=== PATIENT | female | born 1950 ===

== ENCOUNTER 2018-07-22 22:40 | Emergency (ER) | payer MEDICAID ==
[2018-07-22 23:36] VITALS: O2SAT 99
--- NOTE | 2018-07-23 00:44 | ED PDOC ---
Lower Extremity Pain/Injury Time Seen by Provider: 07/22/18 23:41 Chief Complaint (Nursing): Abnormal Skin Integrity Chief Complaint (Provider): Abnormal Skin Integrity History Per: Patient History/Exam Limitations: no limitations Onset/Duration Of Symptoms: Other (x6 weeks) Additional Complaint(s): 68 y/o female with history of diabetes and hypertension presents to ER for evaluation of non healing ulcer to the surface of left tackles heel onset 6 weeks. Patient reports she was seen at [facility] and admitted for 5 days. She states on discharge, she was instructed to follow up with special education tutor and given saline. Patient reports she saw special education tutor today who referred her to ER for further evaluation. Daughter reports the ulcer has been increasing in size. Patient denies vomiting, chills, obvious drainage of ulcer, trauma or injury to area. PMD: non provided Past Medical History Reviewed: Historical Data, Nursing Documentation, Vital Signs Vital Signs: Last Vital Signs Temp 98.1 F 07/22/18 23:32 Pulse 127 H 07/22/18 23:32 Resp 20 07/22/18 23:32 BP 165/90 H 07/22/18 23:32 Pulse Ox 99 07/22/18 23:32 - Medical History PMH: Diabetes, HTN - Surgical History Other surgeries: Right lower extremity surgery for traumatic injury - Family History Family History: States: Unknown Family Hx - Social History Current smoker - smoking cessation education provided: No Alcohol: None Drugs: Denies - Allergies Allergies/Adverse Reactions: Allergies Allergy/AdvReac Type Severity Reaction Status Date / Time No Known Allergies Allergy Verified 07/23/18 00:07 Review of Systems ROS Statement: Except As Marked, All Systems Reviewed And Found Negative Constitutional: Negative for: Chills Gastrointestinal: Negative for: Vomiting Skin: Positive for: Other (non healing ulcer to left tackles heel) Physical Exam - Reviewed Nursing Documentation Reviewed: Yes Vital Signs Reviewed: Yes - Physical Exam Appears: Positive for: Non-toxic, No Acute Distress Head Exam: Positive for: ATRAUMATIC, NORMOCEPHALIC Skin: Positive for: Normal Color, Warm, Dry Neck: Positive for: Normal, Painless ROM, Supple Cardiovascular/Chest: Positive for: Regular Rate, Rhythm, Murmur (3/6 systolic murmur) Extremity: Positive for: Normal ROM (upper and lower), Other (3 cm ulcer to surface of left tackles heel. Mild redness. No warmth, fluctuance or drainage of ulcer.) Neurologic/Psych: Positive for: Alert, Oriented (x3) - Laboratory Results Result Diagrams: 07/23/18 00:55 07/23/18 00:55 - ECG O2 Sat by Pulse Oximetry: 99 (RA) Pulse Ox Interpretation: Normal Medical Decision Making Medical Decision Makin Initial impression: 68 y/o female with non healing ulcer to left foot Initial plan: --Labs --X-ray --Podiatry consult [id number] Labs reviewed and show no significant abnormality. X-ray shows no active disease. Patient was evaluated by podiatry service who states patient needs to follow up with wound center at [place]. Patient is stable for discharge. Diagnosis is chronic wound of lower extremity. Scribe Attestation: Documented by Mechelle Tineo, acting as a scribe for Mirza Machado MD. Provider Scribe Attestation: All medical record entries made by the Scribe were at my direction and personally dictated by me. I have reviewed the chart and agree that the record accurately reflects my personal performance of the history, physical exam, medical decision making, and the department course for this patient. I have also personally directed, reviewed, and agree with the discharge instructions and disposition. Disposition - Clinical Impression Clinical Impression: Chronic wound of extremity - Patient ED Disposition Is Patient to be Admitted: No - Disposition Referrals: [facility] [place] Disposition: Routine/Home Disposition Time: 02:36 Condition: STABLE Instructions: Wound Care Forms: [facility] (Faroese) Print Language: AMHARIC
[2018-07-23 01:03] LABS: BASO # 0.1 K/uL (0.0-0.2); EOS # 0.1 K/uL (0.0-0.7); EOS % 1.2 % (0.0-4.0); HEMOGLOBIN 11.5 g/dL (12.0-16.0); LYMPH # 1.4 K/uL (1.0-4.3); LYMPH % 19.8 % (20.0-40.0); MEAN CELL VOLUME 80.4 fl (81.0-99.0); MEAN CORPUSCULAR HEMOGLOBIN 26.3 pg (27.0-31.0); MEAN CORPUSCULAR HGB CONC 32.7 g/dL (33.0-37.0); MEAN PLATELET VOLUME 8.7 fl (7.2-11.7); MONO # 0.4 K/uL (0.0-0.8); MONO % 5.9 % (0.0-10.0); NEUT # 5.1 K/uL (1.8-7.0); NEUT % 72.1 % (50.0-75.0); NRBC % 0.1 % (0.0-0.0); RBC 4.37 Mil/uL (3.80-5.20); RED CELL DISTRIBUTION WIDTH 13.6 % (11.5-14.5); WHITE BLOOD COUNT 7.1 K/uL (4.8-10.8)
[2018-07-23 01:15] LABS: ALB/GLOB RATIO 1.2 (1.0-2.1); ALBUMIN 4.3 g/dL (3.5-5.0); ALT/SGPT 13 U/L (9-52); AST/SGOT 26 U/L (14-36); BLOOD UREA NITROGEN 39 mg/dl (7-17); CALCIUM 10.4 mg/dL (8.4-10.2); GFR NON-AFRICAN AMERICAN 55
--- NOTE | 2018-07-23 01:20 | CP.PCM.CON ---
History of Present Illness - History of Present Illness History of Present Illness: Podiatry Consult Note: Dr. Zimmerman 68 year old female patient with PMHx DM and HTN of seen and evaluated for L ankle ulceration. Patient states that she has had the wound for a couple of months and was recently admitted at [facility] for the ulceration. Today, she went to her [employer] who recommended she come to the ED to make sure the ulceration was not infected. She denies any drainage to the area and states that it only hurts when she walks. She denies any other pedal complaints at this time. Patient is accompanied by her daughter at today's visit. Denies N/V/F/SOB/CP/Chills. Review of Systems - Review of Systems Review of Systems: As per HPI Past Patient History - Past Social History Smoking Status: Never Smoked - CARDIAC Hx Hypertension: Yes - ENDOCRINE/METABOLIC Hx Diabetes Mellitus Type 2: Yes - PSYCHIATRIC Hx Substance Use: No - SURGICAL HISTORY Hx Appendectomy: Yes Hx Section: Yes Hx Orthopedic Surgery: Yes - ANESTHESIA Hx Anesthesia: Yes Meds Allergies/Adverse Reactions: Allergies Allergy/AdvReac Type Severity Reaction Status Date / Time No Known Allergies Allergy Verified 07/23/18 00:07 Physical Exam - Constitutional Appears: Well, Non-toxic, No Acute Distress - Head Exam Head Exam: ATRAUMATIC, NORMOCEPHALIC - Extremities Exam Additional comments: Vascular: DP/PT pulses faintly palpable, CFT > 3 seconds, TG warm to cool from proximal to distal, pedal hair absent, no edema appreciated Ortho: Tenderness to palpation of L posterior ankle ulceration Neuro: Gross sensation intact, protective sensation diminished Derm: Small ulceration measuring approximately 2cm x 1cm x .1cm appreciated to the posterior aspect of the L ankle with eschar cap. No drainage, no purulence, mild erythema appreciated periwound consistent with hemosiderin changes, no probe to bone, no tunneling, no tracking. Lopez skin edges appreciated. - Neurological Exam Neurological exam: Alert, Oriented x3 - Psychiatric Exam Psychiatric exam: Normal Affect, Normal Mood Results - Vital Signs Recent Vital Signs: Last Vital Signs Temp 98.1 F 07/22/18 23:32 Pulse 127 H 07/22/18 23:32 Resp 20 07/22/18 23:32 BP 165/90 H 07/22/18 23:32 Pulse Ox 99 07/23/18 00:49 - Labs Result Diagrams: 07/23/18 00:55 07/23/18 00:55 Labs: Laboratory Results - last 24 hr 07/23/18 07/23/18 07/23/18 00:55 00:55 00:55 WBC 7.1 RBC 4.37 Hgb 11.5 L Hct 35.1 MCV 80.4 L MCH 26.3 L MCHC 32.7 L RDW 13.6 Plt Count 267 MPV 8.7 Neut % (Auto) 72.1 Lymph % (Auto) 19.8 L [place] % (Auto) 5.9 Eos % (Auto) 1.2 Baso % (Auto) 1.0 Neut # (Auto) 5.1 Lymph # (Auto) 1.4 [place] # (Auto) 0.4 Eos # (Auto) 0.1 Baso # (Auto) 0.1 Sodium 138 Potassium 4.8 Chloride 102 Carbon Dioxide 22 Anion Gap 19 BUN 39 H Creatinine 1.0 Est GFR ( Amer) > 60 Est GFR (Non-Af Amer) 55 Random Glucose 143 H Lactic Acid 3.7 H Calcium 10.4 H Total Bilirubin 0.2 AST 26 ALT 13 Alkaline Phosphatase 53 Total Protein 7.7 Albumin 4.3 Globulin 3.5 Albumin/Globulin Ratio 1.2 Assessment & Plan - Assessment and Plan (Free Text) Assessment: 68 year old female patient with PMHx DM and HTN of seen and evaluated for L ankle ulceration Plan: Patient seen and evaluated with all questions and concerns addressed Patient discussed in detail with Dr. Zimmerman Chart, labs, vitals reviewed; VSS, absent leukocytosis Local wound care to L ankle: cleansed with saline, dressed with xeroform, DSD Vascular consult recommended Patient to follow up in [facility] with Dr. Zimmerman for continued wound care - Date & Time Date: 07/23/18 Time:
[2018-07-23 07:03] VITALS: BP 146/77; PULSE 99; RESP 18; TEMP 98.2
--- NOTE | 2018-07-23 07:56 | RAD ---
Date of service: 07/23/2018 HISTORY: ankle pain COMPARISON: None available. FINDINGS: BONES: Normal. No fracture. JOINTS: Normal. No osteoarthritis. SOFT TISSUE: Normal. OTHER FINDINGS: None . IMPRESSION: Normal Bone Xray.
== END 2018-07-23 02:55 | disposition home or self-care (01) ==
LOC: H.ER 22:40
DX: L97.529 Non-pressure chronic ulcer of other part of left foot with unspecified severity (principal); E11.621 Type 2 diabetes mellitus with foot ulcer; I10 Essential (primary) hypertension; Z48.00 Encounter for change or removal of nonsurgical wound dressing